=== PATIENT | female | born 1950 | race Caucasian/White ===

== ENCOUNTER 2020-05-02 18:43 | Emergency (ER) | payer MEDICARE, OTHER ==
--- NOTE | 2020-05-02 20:18 | EDM.PDOC ---
ED HPI GENERAL MEDICAL PROBLEM - General Chief Complaint: Gastrointestinal Problem Stated Complaint: [facility] Time Seen by Provider: 05/02/20 19:08 Source of Information: Reports: Patient History Limitations: Reports: No Limitations - History of Present Illness INITIAL COMMENTS - FREE TEXT/NARRATIVE: TRIAGE NOTE -- Pt had a colonoscopy in Dr. Rizvi office one week ago, he found polyps and was not able to get to them so sent her to [facility]. She went on to [facility] in [place] on 04/23 and had 2 olyps removed, there was a third that there unable to get an has to go back in and remove some of her bowel d/t it's size on 05/15. Pt had some heavy bleeding night of the second and then went to the ED and had the areas that were bleeding clipped. She was fine until today when she had heavy bleeding and large BM with blood. Above. Patient has not done anything prior to arrival to moderate symptoms. Risk factors would consist of the history of procedures as noted above. She is not anticoagulated. - Related Data Allergies Allergy/AdvReac Type Severity Reaction Status Date / Time Sulfa (Sulfonamide Allergy Hives Verified 05/02/20 18:45 Antibiotics) Home Meds: Home Meds Aspirin 81 mg PO Q48H 05/02/20 [History] Letrozole 2.5 mg PO DAILY 05/02/20 [History] Levothyroxine 137 mg PO DAILY 05/02/20 [History] atorvaSTATin [Lipitor] 5 mg PO Q48H 05/02/20 [History] hydroCHLOROthiazide [Hydrochlorothiazide] 12.5 mg PO DAILY 05/02/20 [History] lisinopriL [Lisinopril] 5 mg PO DAILY 05/02/20 [History] metFORMIN [Glucophage XR] 500 mg PO DAILY 05/02/20 [History] Past Medical History HEENT History: Reports: Glaucoma, Impaired Vision Cardiovascular History: Reports: Hypertension Gastrointestinal History: Reports: Colon Polyp Endocrine/Metabolic History: Reports: Diabetes, Type II Oncologic (Cancer) History: Reports: Breast - Infectious Disease History Infectious Disease History: Reports: Measles - Past Surgical History GI Surgical History: Reports: Colonoscopy Oncologic Surgical History: Reports: Lumpectomy Other Oncologic Surgeries/Procedures: R side Social & Family History - Tobacco Use Smoking Status *Q: Former Smoker Used Tobacco, but Quit: Yes Month/Year Tobacco Last Used: 11/2002 - Caffeine Use Caffeine Use: Reports: Coffee - Recreational Drug Use Recreational Drug Use: No ED ROS GENERAL - Review of Systems Review Of Systems: Comprehensive ROS is negative, except as noted in HPI. ED EXAM, GI/ABD - Physical Exam Exam: See Below Exam Limited By: No Limitations General Appearance: Alert, WD/WN, No Apparent Distress, Other (Apprehensive) Eyes: Bilateral: EOMI Ears: Normal External Exam Nose: Normal Inspection Throat/Mouth: Normal Inspection Head: Atraumatic, Normocephalic Neck: Normal Inspection, Supple Respiratory/Chest: No Respiratory Distress, Lungs Clear, Normal Breath Sounds, No Accessory Muscle Use Cardiovascular: Regular Rate, Rhythm GI/Abdominal Exam: Soft, Tender (Mild diffuse tenderness). No: Guarding, Rigid , Rebound Back Exam: Normal Inspection Extremities: Normal Inspection, Non-Tender Neurological: Alert, Oriented, Normal Cognition, No Motor/Sensory Deficits Psychiatric: Normal Affect Skin Exam: Warm, Dry Course - Vital Signs Last Recorded V/S: Last Vital Signs Temp 36.5 C 05/02/20 18:49 Pulse 76 05/02/20 18:49 Resp 22 H 05/02/20 18:49 BP 129/56 L 05/02/20 18:49 Pulse Ox 98 05/02/20 18:49 - Orders/Labs/Meds Orders: Active Orders 24 hr Category Date Time Status TYPE AND SCREEN [BBK] Stat Lab 05/02/20 19:35 Received Ondansetron [Zofran] Med 05/02/20 21:39 Once 4 mg IVPUSH ONETIME ONE Medication Orders Ondansetron HCl (Zofran) 4 mg IVPUSH ONETIME ONE Stop: 05/02/20 21:40 Labs: Laboratory Tests 05/02/20 05/02/20 05/02/20 Range/Units 19:35 19:35 19:35 WBC 6.20 (3.98-10.04) K/mm3 RBC 3.99 (3.98-5.22) M/mm3 Hgb 11.5 (11.2-15.7) gm/dl Hct 36.1 (34.1-44.9) % MCV 90.5 (79.4-94.8) fl MCH 28.8 (25.6-32.2) pg MCHC 31.9 L (32.2-35.5) g/dl RDW Std Deviation 45.9 (36.4-46.3) fL Plt Count 333 (182-369) K/mm3 MPV 11.7 (9.4-12.3) fl Neutrophils % (Manual) 73 H (40-60) % Band Neutrophils % 0 (0-10) % Lymphocytes % (Manual) 17 L (20-40) % Atypical Lymphs % 0 % Monocytes % (Manual) 8 (2-10) % Eosinophils % (Manual) 1 (0.7-5.8) % Basophils % (Manual) 1 (0.1-1.2) Platelet Estimate Adequate RBC Morph Comment Normal PT 11.0 (9.7-12.0) SECONDS INR 1.01 APTT 23 (22-31) SECONDS Sodium 138 (136-145) mEq/L Potassium 4.0 (3.5-5.1) mEq/L Chloride 101 (98-107) mEq/L Carbon Dioxide 24 (21-32) mEq/L Anion Gap 17.0 H (5-15) BUN 13 (7-18) mg/dL Creatinine 0.9 (0.55-1.02) mg/dL Est Cr Clr Drug Dosing 46.66 mL/min Estimated GFR (MDRD) > 60 (>60) mL/min BUN/Creatinine Ratio 14.4 (14-18) Glucose 195 H (80-115) mg/dL Calcium 9.3 (8.5-10.1) mg/dL Total Bilirubin 0.3 (0.2-1.0) mg/dL AST 19 (15-37) U/L ALT 34 (14-59) U/L Alkaline Phosphatase 64 (46-116) U/L Total Protein 7.2 (6.4-8.2) g/dl Albumin 3.2 L (3.4-5.0) g/dl Globulin 4.0 gm/dL Albumin/Globulin Ratio 0.8 L (1-2) Meds: Medications Generic Name Dose Route Start Last Admin Trade Name Freq PRN Reason Stop Dose Admin Ondansetron HCl 4 mg 05/02/20 21:39 Zofran IVPUSH 05/02/20 21:40 ONETIME ONE - Re-Assessments/Exams Free Text/Narrative Re-Assessment/Exam: 05/02/20 21:40 The patient needs to be admitted to the hospital with gastroenterology consultation. [facility] could not take her back due to lack of beds or any place to put her. She is accepted by [facility] in [place] to the hospitalist service by Dr. Rodriguez. We will recheck her CBC before departure is is going to be an hour or more before the ambulance is here to pick her up. She is not anemic at this point. Departure - Departure Time of Disposition: 21:41 Disposition: DC/Tfer to Acute Hospital 02 Condition: Fair Clinical Impression: Lower GI bleeding, History of colonoscopy with polypectomy - Discharge Information Referrals: PCP,None [Primary Care Provider] - Forms: ED Department Discharge Sepsis Event Note (ED) - Evaluation Sepsis Screening Result: No Definite Risk - Focused Exam Vital Signs: Vital Signs Temp Pulse Resp BP Pulse Ox 05/02/20 18:49 36.5 C 76 22 H 129/56 L 98 - My Orders Last 24 Hours: My Active Orders 05/02/20 19:35 TYPE AND SCREEN [BBK] Stat 05/02/20 21:39 Ondansetron [Zofran] 4 mg IVPUSH ONETIME ONE - Assessment/Plan Last 24 Hours: My Active Orders 05/02/20 19:35 TYPE AND SCREEN [BBK] Stat 05/02/20 21:39 Ondansetron [Zofran] 4 mg IVPUSH ONETIME ONE
[2020-05-02] MEDS ORDERED: Ondansetron 4 MG/2 ML SDV IVPUSH ONE (21:39)
== END 2020-05-02 23:46 ==
LOC: JD.ED 18:43
DX: K92.2 Gastrointestinal hemorrhage, unspecified (principal); I10 Essential (primary) hypertension; E11.9 Type 2 diabetes mellitus without complications; Z79.84 Long term (current) use of oral hypoglycemic drugs; Z87.891 Personal history of nicotine dependence; Z88.2 Allergy status to sulfonamides; Z79.899 Other long term (current) drug therapy
CPT/HCPCS: 36415; 80053; 85007; 85027; 85610; 85730; 86850; 86900; 86901; 96374; 99285; J2405; 99284